=== PATIENT | female | born 1975 | race Caucasian/White ===

== ENCOUNTER 2023-01-01 07:30 | Outpatient (RCR) | payer OTHER, SELFPAY | END 2023-01-02 09:50 | disposition home or self-care (01) | PROVIDERS: Visit Provider Orthopaedic Surgery Foot and Ankle Surgery | DX: M70.61 Trochanteric bursitis, right hip (principal); G57.72 Causalgia of left lower limb; M25.551 Pain in right hip; M25.651 Stiffness of right hip, not elsewhere classified; Z51.89 Encounter for other specified aftercare | CPT/HCPCS: 97110; 97112; 97140; 97162 ==

== ENCOUNTER 2024-04-28 07:30 | Outpatient (RCR) | payer OTHER, SELFPAY | END 2024-08-26 23:59 | disposition home or self-care (01) | PROVIDERS: Visit Provider Orthopaedic Surgery Foot and Ankle Surgery | DX: M19.072 Primary osteoarthritis, left ankle and foot (principal); R26.89 Other abnormalities of gait and mobility; M54.16 Radiculopathy, lumbar region; M25.361 Other instability, right knee; M25.362 Other instability, left knee; M25.572 Pain in left ankle and joints of left foot; G90.522 Complex regional pain syndrome I of left lower limb; M25.551 Pain in right hip; Z51.89 Encounter for other specified aftercare | CPT/HCPCS: 97110; 97112; 97116; 97140; 97162; 97530 ==